=== PATIENT | female | born 1965 ===

== ENCOUNTER 2016-10-26 22:07 | Emergency (ER) | payer MEDICARE, MEDICAID ==
[2016-10-26 22:07] VITALS: BMI 24.9
[2016-10-26 22:17] VITALS: BP 166/100; PULSE 94; TEMP 98.4; O2SAT 98
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
[2016-10-26 23:16] VITALS: RESP 20
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
== END 2016-10-26 23:14 | disposition home or self-care (01) ==
LOC: C.ER 22:07
DX: S40.012A Contusion of left shoulder, initial encounter (principal); S80.01XA Contusion of right knee, initial encounter; Y08.89XA Assault by other specified means, initial encounter

== ENCOUNTER 2018-01-15 10:25 | Emergency (ER) | payer MEDICAID ==
[2018-01-15 10:34] VITALS: BMI 22.3
[2018-01-15 10:39] VITALS: BP 142/99; PULSE 85; RESP 18; TEMP 98.4; O2SAT 99
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
[2018-01-15 12:46] LABS: SQUAMOUS EPITHIAL 7 /hpf (0-5); URINE BILIRUBIN NEGATIVE (NEGATIVE); URINE BLOOD 1+ (NEGATIVE); URINE CLARITY Hazy (Clear); URINE COLOR Yellow (YELLOW); URINE GLUCOSE (UA) NORMAL (Normal); URINE LEUKOCYTE ESTERASE TRACE Leu/uL (Negative); URINE PROTEIN NEGATIVE (NEGATIVE); URINE UROBILINOGEN NORMAL mg/dL (0.2-1.0)
== END 2018-01-15 14:00 | disposition home or self-care (01) ==
LOC: C.ER 10:25
DX: M79.1 Myalgia (principal)
CPT/HCPCS: 81001; 96372; 99285; J1885

== ENCOUNTER 2018-07-01 12:35 | Emergency (ER) | payer MEDICAID ==
[2018-07-01 12:35] VITALS: BMI 22.3
[2018-07-01 12:40] VITALS: RESP 18
[2018-07-01 13:38] LABS: BASO # 0.1 K/uL (0.0-0.2); BASO % 0.7 % (0.0-2.0); EOS # 0.2 K/uL (0.0-0.7); EOS % 2.4 % (0.0-4.0); HEMOGLOBIN 14.1 g/dL (11.0-16.0); LYMPH # 2.4 K/uL (1.0-4.3); LYMPH % 27.1 % (20.0-40.0); MEAN CORPUSCULAR HGB CONC 33.7 g/dL (33.0-37.0); MEAN PLATELET VOLUME 8.4 fL (7.2-11.7); MONO # 0.6 K/uL (0.0-0.8); MONO % 6.9 % (0.0-10.0); NEUT # 5.5 K/uL (1.8-7.0); NEUT % 62.9 % (50.0-75.0); RBC 4.86 Mil/uL (3.80-5.20); RED CELL DISTRIBUTION WIDTH 13.9 % (11.5-14.5); WHITE BLOOD COUNT 8.7 K/uL (4.8-10.8)
[2018-07-01 13:51] LABS: ALB/GLOB RATIO 1.6 (1.0-2.1); ALBUMIN 4.5 g/dL (3.5-5.0); ALT/SGPT 30 U/L (9-52); AST/SGOT 25 U/L (14-36); BLOOD UREA NITROGEN 13 mg/dL (7-17); CALCIUM 9.3 mg/dl (8.6-10.4); GFR NON-AFRICAN AMERICAN > 60
--- NOTE | 2018-07-01 15:52 | C.PDOC ---
History Of Present Illness 53 y/o female, with no known PMHx, presents to the ED for evaluation of intermittent dizzy spells since yesterday. States she had 6 episodes of dizziness yesterday, all of which she was sitting down for. Patient describes initially her vision became blurry, then she felt dizzy, with no associated fall or injury. She denies any nausea, vomiting, SOB, or chest pain. Patient also describes the dizziness as room spinning. Today upon waking up she felt tired, no other associated symptoms. Time Seen by Provider: 07/01/18 14:24 Chief Complaint (Nursing): Dizziness/Lightheaded History Per: Patient History/Exam Limitations: no limitations Onset/Duration Of Symptoms: Intermittent Episodes Current Symptoms Are (Timing): Still Present Activity At Onset Of Symptoms: Sitting Fall Associated With With Symptoms: No Past Medical History Reviewed: Historical Data, Nursing Documentation, Vital Signs Vital Signs: Last Vital Signs Temp 98.1 F 07/01/18 12:40 Pulse 73 07/01/18 12:40 Resp 18 07/01/18 12:40 BP 150/94 H 07/01/18 12:40 Pulse Ox 98 07/01/18 12:40 - Medical History PMH: Gall Bladder Disease Denies: Chronic Kidney Disease Surgical History: Cholecystectomy Family History: States: Unknown Family Hx - Social History Hx Tobacco Use: No Hx Alcohol Use: No Hx Substance Use: No - Immunization History Hx Tetanus Toxoid Vaccination: No Hx Influenza Vaccination: No Hx Pneumococcal Vaccination: No Review Of Systems Except As Marked, All Systems Reviewed And Found Negative. Constitutional: Negative for: Fever, Chills Eyes: Positive for: Other (Blurry vision associated with dizzy spells). Negative for: Vision Change Cardiovascular: Negative for: Chest Pain Respiratory: Negative for: Cough, Shortness of Breath Gastrointestinal: Negative for: Nausea, Vomiting Neurological: Positive for: Dizziness (room-spinning). Negative for: Weakness, Numbness, Headache Physical Exam - Physical Exam Appears: Non-toxic, No Acute Distress Skin: Normal Color, Warm, Dry Head: Atraumatic, Normacephalic Eye(s): bilateral: Normal Inspection (no nystagmus), PERRL, EOMI Ear(s): Bilateral: Normal Oral Mucosa: Moist Neck: Normal ROM, Supple Chest: Symmetrical Cardiovascular: Rhythm Regular, No Murmur Respiratory: Normal Breath Sounds, No Rales, No Rhonchi, No Wheezing Gastrointestinal/Abdominal: Soft, No Tenderness, No Distention Extremity: Bilateral: Atraumatic, Normal Color And Temperature, Normal ROM Pulses: Left Dorsalis Pedis: Normal, Right Dorsalis Pedis: Normal Neurological/Psych: Oriented x3, Normal Speech, Normal Cranial Nerves, Normal Motor, Normal Sensation, Other (No focal deficits) Gait: Steady ED Course And Treatment - Laboratory Results Result Diagrams: 07/01/18 13:33 07/01/18 13:33 O2 Sat by Pulse Oximetry: 98 (RA) Pulse Ox Interpretation: Normal - CT Scan/US CT Head Other Rad Studies (CT/US): Read By Radiologist CT/US Interpretation: Accession No. : [id number]. Patient Name / ID : CHARLETTE CARDENAS / [id number]. Exam Date : 07/01/2018 15:43:06 ( Approved ). Study Comment : Sex / Age : F / 53Y. Creator : Lisa Sanchez. Dictator : Trevon Fagan MD. Operations/Dispatch : Sales Support Rep : Trevon Fagan MD. Approver2 : Report Date : 07/01/2018 15:47:31. My Comment : . Date of service: 07/01/2018. PROCEDURE: CT HEAD WITHOUT CONTRAST. HISTORY: dizziness yesterday. COMPARISON: None available. TECHNIQUE: Axial computed tomography images were obtained through the head/brain without intravenous contrast. Radiation dose: Total exam DLP = 1016.97 mGy-cm. This CT exam was performed using one or more of the following dose reduction techniques: Automated exposure control, adjustment of the mA and/or kV according to patient size, and/or use of iterative reconstruction technique. FINDINGS: HEMORRHAGE: No intracranial hemorrhage. BRAIN: Normal marin-white matter differentiation and density are appreciated throughout the cerebrum and cerebellum with the brainstem appearing unremarkable as well. There is no mass effect. There is no suspicious extra- axial fluid collection and the midline brain anatomy appears diffusely unremarkable. VENTRICLES: Unremarkable. No hydrocephalus. CALVARIUM: No destructive bony lesion or displaced fracture identified including through the skullbase. PARANASAL SINUSES: Unremarkable as visualized. No significant inflammatory changes. MASTOID AIR CELLS: Unremarkable as visualized. No inflammatory changes. OTHER FINDINGS: None. IMPRESSION: Unremarkable unenhanced CT of the Head. Medical Decision Making Medical Decision Making: Impression: Dizziness, roomspinning Initial Plan: --EKG --CMP --Troponin I --CBC --Urine POC --CT Head Patient feels well at this point , EKG NSR rate 64, no ST changes , CT head unremarkable Disposition Counseled Patient/Family Regarding: Studies Performed, Diagnosis, Need For Followup - Disposition Disposition: HOME/ ROUTINE Disposition Time: 16:02 Condition: STABLE Additional Instructions: Siga con de jesus doctor, Y si puedes con un neurologo. Instructions: Vertigo (a Type of Dizziness) Forms: Gen Discharge Inst [place], [facility] ([place]), Work Excuse - POA Present On Arrival: None - Clinical Impression Clinical Impression: Dizziness - Scribe Statement The provider has reviewed the documentation as recorded by the Isai Souza Provider Attestation: All medical record entries made by the Jimiibcan were at my direction and per sonally dictated by me. I have reviewed the chart and agree that the record accurately reflects my personal performance of the history, physical exam, medical decision making, and the department course for this patient. I have also personally directed, reviewed, and agree with the discharge instructions and disposition.
[2018-07-01 16:41] VITALS: BP 126/81; PULSE 65; TEMP 97.9; O2SAT 97
--- NOTE | 2018-07-02 21:54 | CARD ---
APPROVED REPORT Date of service: 07/01/2018 EKG Measurement Heart [id number] <Conclusion> Normal sinus rhythm Normal ECG
== END 2018-07-01 16:40 | disposition home or self-care (01) ==
LOC: C.ER 12:35
DX: R42 Dizziness and giddiness (principal)